=== PATIENT | female | born 1985 | race African-American/Black ===

== ENCOUNTER 2018-05-26 14:47 | Emergency (ER) | payer SELFPAY ==
[~2018-05-26] VITALS: Ht 154.9 cm; Wt 100.7 kg
[~2018-05-26 14:47] MED LIST: DOCU-109 PO; IBUP-1060 PO; OXYC1TAB15 PO; PNV91TAB3 PO; TRAM-48 PO
[2018-05-26 14:54] VITALS: BP 132/79
--- NOTE | 2018-05-26 15:34 | PHYS DOC ---
Past Medical History Past Medical History: No Pertinent History Past Surgical History: Alcohol Use: None Drug Use: None, Marijuana Adult General Chief Complaint Chief Complaint: MECHANICAL FALL HPI HPI Patient is a 32 year old female with no significant medical history who presents today complaining of 8 out of 10 intermittent left knee, left lateral hip pain that began early this morning after she tripped on her children's toys and fell landing on her left knee. Patient denies any loss of consciousness. Denies any back pain. Denies hitting her head on the ground. Denies any neck pain. She states her pain is worse on weight-bearing especially to the left lower extremity. Review of Systems Review of Systems Constitutional: Denies fever or chills [] GI: Denies abdominal pain, nausea, vomiting, bloody stools or diarrhea [] : Denies dysuria or hematuria [] Musculoskeletal: Reports left lateral hip pain, left knee pain Integument: Denies rash or skin lesions [] Neurologic: Denies headache, focal weakness or sensory changes [] All other systems were reviewed and found to be within normal limits, except as documented in this note. Allergies Allergies Allergies Coded Allergies Type Severity Reaction Last Updated Verified No Known Drug Allergies 12/14/15 No Physical Exam Physical Exam Constitutional: Well developed, well nourished, no acute distress, non-toxic appearance. [] Skin: Warm, dry, no erythema, no rash. [] Back: No tenderness, no CVA tenderness. [] Extremities: Left lower extremity with no wrist deformity. Tenderness on palpation of the left lateral knee. Full range of motion to the left knee, negative Hakeem sign, negative Marii sign, negative anterior-posterior drawer sign. Full range of motion to the left hip. Adequate internal rotation and external rotation of the left hip. +2 left pedal pulse. Sensation intact to the left lower extremity. Cap refill less than 2 seconds the left lower extremity. Neurologic: Alert and oriented X 3, normal motor function, normal sensory function, no focal deficits noted. [] Psychologic: Affect normal, judgement normal, mood normal. [] Current Patient Data Vital Signs Vital Signs Date Time Temp Pulse Resp B/P (MAP) Pulse Ox O2 Delivery O2 Flow Rate FiO2 05/26/18 14:54 97.8 85 18 132/79 (96) 97 Room Air 97.8 EKG EKG [] Radiology/Procedures Radiology/Procedures []PROCEDURE: KNEE LEFT 4V HIP LEFT 2V WITH PELVIS, KNEE LEFT 4V (AP pelvis, left hip AP and frog-leg view, left knee AP, oblique, lateral, sunrise) INDICATION: left hip and knee pain after falling over child's toy COMPARISON: None. PELVIS AND LEFT HIP FINDINGS: No acute fracture or malalignment. The joint spaces are maintained. Bony mineralization is normal for the patient's age. No significant soft tissue abnormality. No radiopaque foreign body. LEFT KNEE FINDINGS: No acute fracture or malalignment. No suprapatellar joint effusion. The joint spaces are maintained. Bony mineralization is normal for the patient's age. No significant soft tissue abnormality. No radiopaque foreign body. IMPRESSION: No acute fracture or malalignment. Electronically signed by: Carlo Morales MD (05/26/2018 4:14 PM) [facility] DICTATED and SIGNED BY: CARLO MORALES MD DATE: 05/26/18 161 Course & Med Decision Making Course & Med Decision Making Pertinent Labs and Imaging studies reviewed. (See chart for details) This is a 32-year-old female patient presented to the ED today with left knee pain and left lateral hip pain status post falling. Left knee x-rays, left hip including pelvic x-rays interpreted by radiologist are negative for any acute findings. Patient was advised to ice and elevate the extremity. Discharged on diclofenac. Provided orthopedic doctor for follow-up as an outpatient. Dragon Disclaimer Dragon Disclaimer This electronic medical record was generated, in whole or in part, using a voice recognition dictation system. Departure Departure Impression: Primary Impression: Contusion of left knee Additional Impressions: Fall Contusion of hip, left Disposition: 01 HOME, SELF-CARE Condition: STABLE Referrals: NO PCP (PCP) FABRIZIO CABA MD follow up in 1 week Patient Instructions: Contusion, [id number], Fall Prevention and Home Safety Additional Instructions: You were evaluated in the emergency room for left leg pain after falling. Your x -rays were negative. Please ice and elevate the extremity. Take the prescribed medication as needed for pain. Follow-up with the orthopedic doctor provided or your own doctor in 1-2 weeks. Scripts Diclofenac Sodium (DICLOFENAC SODIUM) 50 Mg Tablet.dr 1 TAB PO BID, #30 TAB 0 Refills Prov: NAYAJA NINO WELT STITCHER 05/26/18 Problem Qualifiers Primary Impression: Contusion of left knee Encounter type: initial encounter Qualified Codes: S80.02XA - Contusion of left knee, initial encounter Additional Impressions: Fall Encounter type: initial encounter Qualified Codes: W19.XXXA - Unspecified fall, initial encounter Contusion of hip, left Encounter type: initial encounter Qualified Codes: S70.02XA - Contusion of left hip, initial encounter DELICIAJA WELT STITCHER May 26, 2018 15:34
--- NOTE | 2018-05-26 16:17 | RAD ---
HIP LEFT 2V WITH PELVIS, KNEE LEFT 4V (AP pelvis, left hip AP and frog-leg view, left knee AP, oblique, lateral, sunrise) INDICATION: left hip and knee pain after falling over child's toy COMPARISON: None. PELVIS AND LEFT HIP FINDINGS: No acute fracture or malalignment. The joint spaces are maintained. Bony mineralization is normal for the patient's age. No significant soft tissue abnormality. No radiopaque foreign body. LEFT KNEE FINDINGS: No acute fracture or malalignment. No suprapatellar joint effusion. The joint spaces are maintained. Bony mineralization is normal for the patient's age. No significant soft tissue abnormality. No radiopaque foreign body. IMPRESSION: No acute fracture or malalignment. Electronically signed by: Carlo Knox MD (05/26/2018 4:14 PM) [facility]
[2018-05-26] MEDS ORDERED: DICL50TA4 PO (16:35)
== END 2018-05-26 16:43 | disposition home or self-care (01) ==
LOC: ER 14:47
DX: S70.02XA Contusion of left hip, initial encounter (principal); S80.02XA Contusion of left knee, initial encounter; Z98.890 Other specified postprocedural states; W01.0XXA Fall on same level from slipping, tripping and stumbling without subsequent striking against object, initial encounter; Y93.89 Activity, other specified; Y92.89 Other specified places as the place of occurrence of the external cause; Y99.8 Other external cause status
CPT/HCPCS: 73502; 73564; 99283